=== PATIENT | female | born 1955 | race African-American/Black ===

== ENCOUNTER 2016-09-20 22:56 | Emergency (ER) | payer OTHER ==
[~2016-09-20] VITALS: Ht 157.5 cm; Wt 49.9 kg
[~2016-09-20 22:56] MED LIST: FLONASE1 SPRAYS NASAL; IBUPROFEN600 MG ORAL
[2016-09-20 23:05] VITALS: BP 117/68
[2016-09-20] MEDS ORDERED: NKM (23:09)
[2016-09-20] MEDS ORDERED: IBUPROFEN600 MG ORAL (23:12)
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
--- NOTE | 2016-09-21 10:42 | Diagnostic Imaging Report ---
Indication: Chest pain Technique: One view of the chest Comparison: none Findings: Lungs are hyperinflated. Lungs and pleural spaces are clear. The heart size is normal Impression: Hyperinflation, as in COPD. No acute process This agrees with the preliminary interpretation provided by the emergency room physician
--- NOTE | 2016-09-23 08:31 | Cardiology Report ---
APPROVED REPORT EKG Measurement Heart [id number] Sinus bradycardia Otherwise normal ECG
== END 2016-09-20 23:30 | disposition home or self-care (01) ==
LOC: EMR 23:12
DX: S20.219A Contusion of unspecified front wall of thorax, initial encounter (principal); S16.1XXA Strain of muscle, fascia and tendon at neck level, initial encounter; V43.52XA Car driver injured in collision with other type car in traffic accident, initial encounter; Y92.410 Unspecified street and highway as the place of occurrence of the external cause; Y99.8 Other external cause status; Z88.2 Allergy status to sulfonamides
CPT/HCPCS: 71010; 93005; 99283

== ENCOUNTER 2017-07-19 22:22 | Emergency (ER) | payer OTHER ==
[~2017-07-19] VITALS: Ht 157.5 cm; Wt 49.9 kg
[~2017-07-19 22:22] MED LIST changes: +NKM
[2017-07-19 22:40] VITALS: BP 100/63
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
[2017-07-19] MEDS ORDERED: ROBAXIN500 MG PO (23:07)
[2017-07-19] MEDS ORDERED: ACETAMINOPHEN-1 EAC1 ORAL (23:07)
[2017-07-19] MEDS ORDERED: NAPROXEN375 MG ORAL (23:07)
[2017-07-19] MEDS ORDERED: Naproxen 500mg tab ORAL ONE (23:15)
[2017-07-19 23:30] VITALS: BP 100/63
== END 2017-07-19 23:30 | disposition home or self-care (01) ==
LOC: EMR 22:46
DX: S39.012A Strain of muscle, fascia and tendon of lower back, initial encounter (principal); S16.1XXA Strain of muscle, fascia and tendon at neck level, initial encounter; V49.9XXA Car occupant (driver) (passenger) injured in unspecified traffic accident, initial encounter; Y92.9 Unspecified place or not applicable; Z88.2 Allergy status to sulfonamides; F17.200 Nicotine dependence, unspecified, uncomplicated
CPT/HCPCS: 99284

== ENCOUNTER 2017-10-17 16:36 | Emergency (ER) | payer OTHER ==
[~2017-10-17] VITALS: Ht 157.5 cm; Wt 50.8 kg
[~2017-10-17 16:36] MED LIST changes: +ACETAMINOPHEN-1 EAC1 ORAL; +NAPROXEN375 MG ORAL; +ROBAXIN500 MG PO
[2017-10-17 16:55] VITALS: BP 109/65
--- NOTE | 2017-10-17 18:14 | Emergency Room Report ---
History of Present Illness General Chief Complaint: General Complaint Source: Patient Present Illness HPI 62-year-old female presents to the emergency department complaining of nasal congestion, rhinorrhea, frontal sinus headache, bilateral ear discomfort and pressure-like pain behind both eyes. Patient denies pain with movement of the eyes, erythema, changes in vision. Patient denies neck pain, stiffness or photophobia. She reports intermittent cough however she states her nasal congestion and rhinorrhea are the most prominent symptoms. Patient reports fevers, chills and fatigue. Denies SOB, wheezing or LE edema. Denies high fevers , lethargy, neck stiffness, irritability, photophobia dehydration, N/V/D. Denies Cp, Palpitations, LOC, AMS, seizures, paresthesias, or changes in Hearing or vision, no Sudden severe GREEN Allergies: Coded Allergies: SULFADIAZINE (Verified Allergy, Intermediate, 09/20/16) Patient History Past Medical History: see triage record Past Surgical History: none Pertinent Family History: none Immunizations: UTD Reviewed Nursing Documentation: PMH: Agreed, PSxH: Agreed Nursing Documentation-PMH Past Medical History: No Stated History Review of Systems All Other Systems: negative except mentioned in HPI Physical Exam Vital Signs Date Time Temp Pulse Resp B/P (MAP) Pulse Ox O2 Delivery O2 Flow Rate FiO2 10/17/17 16:45 100.6 95 20 109/65 96 Room Air Sp02 EP Interpretation: reviewed, normal General Appearance: no apparent distress, alert, GCS 15, non-toxic Head: normocephalic, atraumatic Eyes: bilateral eye normal inspection, bilateral eye PERRL, bilateral eye EOMI ENT: hearing grossly normal, normal pharynx, normal voice, TMs + canals normal , uvula midline, moist mucus membranes, nasal congestion Neck: full range of motion, no meningismus, no bony tend Respiratory: chest non-tender, lungs clear, normal breath sounds, speaking full sentences Cardiovascular #1: regular rate, rhythm, no edema, normal capillary refill Rectal: deferred Musculoskeletal: back normal, gait/station normal, normal range of motion, non- tender Neurologic: alert, oriented x3, responsive, motor strength/tone normal, sensory intact, speech normal, grossly normal Psychiatric: judgement/insight normal Skin: normal color, no rash, warm/dry, well hydrated Lymphatic: no adenopathy Medical Decision Making PA Attestation Dr. Stovall is my supervising physician whom pt. management has been discussed with. Diagnostic Impression: Primary Impression: Viral syndrome Additional Impression: Nasal congestion ER Course 62-year-old female presents to the emergency department complaining of nasal congestion, rhinorrhea, frontal sinus headache, bilateral ear discomfort and pressure-like pain behind both eyes. Patient denies pain with movement of the eyes, erythema, changes in vision. Patient denies neck pain, stiffness or photophobia. She reports intermittent cough however she states her nasal congestion and rhinorrhea are the most prominent symptoms. Patient reports fevers, chills and fatigue. Denies SOB, wheezing or LE edema. Denies high fevers , lethargy, neck stiffness, irritability, photophobia dehydration, N/V/D. Denies Cp, Palpitations, LOC, AMS, seizures, paresthesias, or changes in Hearing or vision, no Sudden severe GREEN Ddx considered but are not limited to URI, pneumonia, PE, strep pharyngitis, meningitis, influenza, OM/OE just to name a few. Vital signs: Pt has low grade fever of 100.6, the remaining VS are WNL H&PE are most consistent with Viral Syndrome suspicious for Influenza will treat clinically - no meningeal signs, Lungs are clear and oropharynx is not involved, no evidence of bacterial infection at this time. ORDERS: none required at this time, the diagnosis is clinical ED INTERVENTIONS: -Tylenol PO --PT. EDUCATION: --I discussed with this patient that I will be prescribing Tamiflu which is an antiviral. This medication is not always covered by insurance and is not always available at pharmacies. I educated patient that this medication has been shown to reduce symptoms by 1 day, and if unable to obtain there is no alternative, and to continue conservative treatment. DISCHARGE: At this time pt. is stable for d/c to home. Will provide printed patient care instructions, and any necessary prescriptions. Care plan and follow up instructions have been discussed with the patient prior to discharge. Last Vital Signs Date Time Temp Pulse Resp B/P (MAP) Pulse Ox O2 Delivery O2 Flow Rate FiO2 10/17/17 16:55 100.6 20 109/65 96 Room Air 10/17/17 16:45 95 Disposition: HOME, SELF-CARE Condition: Stable Scripts Aspirin/Acetaminophen/Caffeine (EXCEDRIN MIGRAINE GELTAB) 1 Each Tablet 1 EACH PO TID, #20 TAB Prov: Margoth Chopra 10/17/17 Pseudoephedrine Hcl* (NEXAFED*) 30 Mg Tablet 30 MG ORAL Q6H Y for congestion for 5 Days, #20 TAB Prov: Margoth Chopra. 10/17/17 Oseltamivir Phosphate (Tamiflu) 75 Mg Capsule 75 MG ORAL TWICE A DAY for 5 Days, #10 CAP Prov: Margoth Chopra 10/17/17 Albuterol Sulfate* (ALBUTEROL SULFATE MDI*) 8.5 Gm Hfa.aer.ad 2 PUFF INH Q3H, #1 INH 0 Refills Prov: Margoth Chopra 10/17/17 Codeine/Promethazine Hcl* (PROMETHAZINE-CODEINE SYRUP*) 118 Ml Syrup 5 ML ORAL Q6H Y for For Cough, #118 ML 0 Refills Prov: Margoth Chopra 10/17/17 Patient Instructions: Upper Respiratory Infection, Adult, [id number] Additional Instructions: Take medications as directed. Follow up with a Primary Care Provider in 3-5 days, even if your symptoms have resolved. --Please review list of primary care clinics, if you do not already have a primary care provider Return sooner to ED if new symptoms occur, or current symptoms become worse. Do not drink alcohol, drive, or operate heavy machinery while taking Cough Syrup as this may cause drowsiness. - Please note that this Emergency Department Report was dictated using [employer] worker technology software, occasionally this can lead to erroneous entry secondary to interpretation by the dictation equipment. Margoth Chopra Oct 17, 2017 18:14
[2017-10-17] MEDS ORDERED: TAMIFLU75 MG ORAL ×2 (18:16→18:17)
[2017-10-17] MEDS ORDERED: ALBUTEROL SULF8.5 GM INH ×2 (18:16→18:17)
[2017-10-17] MEDS ORDERED: EXCEDRIN MIGRA1 EACH PO ×2 (18:16→18:17)
[2017-10-17] MEDS ORDERED: NEXAFED30 MG ORAL ×2 (18:16→18:17)
[2017-10-17] MEDS ORDERED: PROMETHAZINE-C118 M1 ORAL ×2 (18:16→18:17)
[2017-10-17 19:03] VITALS: BP 109/65
== END 2017-10-17 19:07 | disposition home or self-care (01) ==
LOC: EMR 17:25
DX: B34.9 Viral infection, unspecified (principal); R09.81 Nasal congestion; Z88.2 Allergy status to sulfonamides
CPT/HCPCS: 99284

== ENCOUNTER 2019-04-08 00:21 | Emergency (ER) | payer SELFPAY ==
[~2019-04-08] VITALS: Ht 157.5 cm; Wt 50.8 kg
[~2019-04-08 00:21] MED LIST changes: +ALBUTEROL SULF8.5 GM INH; +EXCEDRIN MIGRA1 EACH PO; +NEXAFED30 MG ORAL; +PROMETHAZINE-C118 M1 ORAL; +TAMIFLU75 MG ORAL
[2019-04-08 00:35] VITALS: BP 107/59
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
[2019-04-08 02:09] LABS: BASOPHILS % (AUTO) 1.1 % (0.0-2.0); EOSINOPHILS % (AUTO) 4.4 % (0.0-3.0); HEMATOCRIT 44.5 % (37.0-47.0); HEMOGLOBIN 14.6 G/DL (12.0-16.0); LYMPHOCYTES % (AUTO) 24.3 % (20.0-45.0); MEAN CORPUSCULAR VOLUME 97 FL (80-99); MONOCYTES % (AUTO) 5.8 % (1.0-10.0); NEUTROPHILS % (AUTO) 64.4 % (45.0-75.0); PLATELET COUNT 170 K/UL (150-450); RED BLOOD COUNT 4.58 M/UL (4.20-5.40)
[2019-04-08 02:10] LABS: APPEARANCE,URINE CLEAR; BILIRUBIN, URINE NEGATIVE (NEGATIVE); COLOR,URINE PALE YELLOW; GLUCOSE, URINE (UA) NEGATIVE (NEGATIVE); KETONES,URINE NEGATIVE (NEGATIVE); LEUKOCYTE ESTERASE ,URINE NEGATIVE (NEGATIVE); NITRITE,URINE NEGATIVE (NEGATIVE); PH,URINE 7 (4.5-8.0); PROTEIN,URINE NEGATIVE (NEGATIVE); UROBILINOGEN,URINE NORMAL MG/DL (0.0-1.0)
[2019-04-08 02:27] LABS: INR 0.9 (0.9-1.1)
[2019-04-08 02:30] VITALS: BP 110/63
[2019-04-08 02:30] LABS: ANION GAP 5 mmol/L (5-15); BLOOD UREA NITROGEN 19 mg/dL (7-18); CALCIUM 9.1 MG/DL (8.5-10.1); CARBON DIOXIDE 30 MMOL/L (21-32); CHLORIDE 104 MMOL/L (98-107); CREATININE 0.9 MG/DL (0.55-1.30); POTASSIUM 3.7 MMOL/L (3.5-5.1); SODIUM 139 MMOL/L (136-145)
[2019-04-08 02:35] LABS: ALANINE AMINOTRANSFERASE 15 U/L (12-78); ALBUMIN 4.1 G/DL (3.4-5.0); ALBUMIN/GLOBULIN RATIO 1.4 (1.0-2.7); ALKALINE PHOSPHATASE 61 U/L (46-116); ASPARTATE AMINO TRANSFERASE 28 U/L (15-37); BILIRUBIN,TOTAL 0.4 MG/DL (0.2-1.0)
--- NOTE | 2019-04-08 03:58 | NUR ---
ED Nurse Note: Pt declined contrast, ERMD notified
[2019-04-08 04:30] VITALS: BP 115/66
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
[2019-04-08] MEDS ORDERED: NAPROXEN250 MG ORAL (05:19)
[2019-04-08] MEDS ORDERED: ROBAXIN500 MG PO (05:19)
[2019-04-08 05:30] VITALS: BP 115/66
--- NOTE | 2019-04-08 05:30 | NUR ---
ER DISCHARGE NOTE: Patient is cleared to be discharged per ERMD, pt is aox4, on room air, with stable vital signs. pt was given dc and prescription instructions, pt was able to verbalize understanding, pt id band and iv site removed without complications. pt is able to ambulate with steady gait. pt took all belongings.
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
--- NOTE | 2019-04-10 20:36 | Cardiology Report ---
APPROVED REPORT EKG Measurement Heart [id number] [place] [id number] Sinus bradycardia Otherwise normal ECG
== END 2019-04-08 05:30 | disposition home or self-care (01) ==
LOC: EMR 01:47
DX: S20.219A Contusion of unspecified front wall of thorax, initial encounter (principal); S16.1XXA Strain of muscle, fascia and tendon at neck level, initial encounter; R91.1 Solitary pulmonary nodule; J44.9 Chronic obstructive pulmonary disease, unspecified; V49.9XXA Car occupant (driver) (passenger) injured in unspecified traffic accident, initial encounter; Y92.410 Unspecified street and highway as the place of occurrence of the external cause; Z88.2 Allergy status to sulfonamides; F17.200 Nicotine dependence, unspecified, uncomplicated
CPT/HCPCS: 36415; 71250; 80053; 81003; 83690; 84484; 85025; 85610; 85730; 93005; 99284